=== PATIENT | male | born 1980 | race Caucasian/White ===

== ENCOUNTER 2019-03-22 11:10 | Inpatient (IN) | payer BC, SELFPAY ==
--- NOTE | ~2019-03-22 | US_ITS ---
EXAMINATION: US venous doppler [facility] DATE: 03/22/2019 14:00 INDICATION: Left leg pain and swelling TECHNIQUE: Benitez scale images without and with compression and Doppler images of the left lower extrem ity veins were obtained. COMPARISON: 07/26/2013. FINDINGS: The left common femoral vein, profunda femoral vein, femoral vein, popliteal vein, peroneal trunk, posterior tibial veins, and greater saphenous vein are patent. IMPRESSION: 1. Patent left lower extremity veins. No evidence of deep venous thrombosis. Reviewed, dictated and finalized at location A. [facility]OLOG[facility]
--- NOTE | ~2019-03-22 | XR_ITS ---
EXAMINATION: XR ankle LT min 3V DATE: 03/22/2019 14:30 INDICATION: Left ankle pain and cellulitis TECHNIQUE: Anteroposterior, lateral, mortise, and additional oblique view of the ankle were obtained. COMPARISON: None. FINDINGS: There is soft tissue swelling anterior to the ankle. Bone alignment is normal. There is no fracture. A plantar calcaneal enthesophyte is noted. IMPRESSION: 1. Soft tissue swelling without acute osseous findings. Reviewed, dictated and finalized at location A. A R SPECIALIST
[2019-03-22 11:37] VITALS: BP 102/74; PULSE 101; RESP 20; TEMP 36.8; O2SAT 99
[2019-03-22 11:54] LABS: Basophils Percent Auto 0.3 % (0.2-1.2); Eosinophils Percent Auto 0.3 % (0-4.4); Hematocrit 43.4 % (42.0-52.0); Hemoglobin 14.3 g/dL (14.0-18.0); Immature Granulocyte Absolute 0.06 K/mm3 (0.00-0.031); Immature Granulocyte Percent A 0.5 % (0-0.5); Immature Platelet Fraction Pct 4.3 % (0.9-11.2); Lymphocytes Percent Auto 9.1 % (18.3-44.2); Mean Corpuscular HGB Conc 32.9 g/dl (32-36); Mean Corpuscular Hemoglobin 28.6 pg (26-34); Mean Corpuscular Volume 86.8 fl (80-100); Mean Platelet Volume 10.5 fl (7.4-10.4); Monocytes Absolute Auto 1.1 K/mm3 (0.1-0.6); Monocytes Percent Auto 9.9 % (2.6-8.5); Neutrophils Absolute Auto 8.8 K/mm3 (1.3-6.7); Neutrophils Percent Auto 79.9 % (45.5-73.1); Platelet Count Result 125 k/mm3 (150-375)
[2019-03-22 12:05] LABS: Blood Urea Nitrogen 18 mg/dL (9-20); Calcium 8.9 mg/dL (8.4-10.2); Carbon Dioxide 19 mmol/L (22-30); Chloride 92 mmol/L (98-107); Estimated CRCL calculation 209 ml/min; Estimated Glomerular Filt Rate > 60; Glucose 183 mg/dL (75-110); Potassium 3.9 mmol/L (3.4-5.0); Sodium 130 mmol/L (137-145)
--- NOTE | 2019-03-22 14:19 | ED.EXTPRO ---
HPI - Extremity Problem General Chief complaint: Extremity Problem,Nontraumatic <CHYNA Gonzalez Last Filed: 03/22/19 14:25> Stated complaint: Cellulitis <CHYNA Gonzalez Last Filed: 03/22/19 14:25> Time Seen by Provider: 03/22/19 13:29 <CHYNA Gonzalez Last Filed: 03/22/19 14:25> Source: patient <CHYNA Gonzalez Last Filed: 03/22/19 14:25> Mode of arrival: ambulatory <CHYNA Gonzalez Last Filed: 03/22/19 14:25> Limitations: no limitations <CHYNA Gonzalez Last Filed: 03/22/19 14:25> History of Present Illness HPI Narrative: Patient is a 38-year-old male who presents to emergency department for evaluation of red swollen tender left lower extremity patient notes he has a diabetic wound to the medial aspect of the left ankle which has been present and is managed by wound care at [facility]. Patient notes chills and body aches over the weekend. Patient denies any vomiting diarrhea. Patient is an insulin-dependent diabetic. Patient presents per private vehicle in no distress patient has not taken anything or and has not been seen for this complaint <CHYNA Gonzalez Last Filed: 03/22/19 14:25> Related Data Home medications: Home Medications Medication Instructions Recorded Confirmed Humalog KwikPen Insulin 03/22/19 aspirin 03/22/19 atorvastatin 40 mg PO DAILY 03/22/19 03/22/19 empagliflozin [Jardiance] 25 mg PO DAILY 03/22/19 03/22/19 furosemide 40 mg PO DAILY 03/22/19 03/22/19 insulin detemir U-100 [Levemir 75 unit SUBCUT DAILY 03/22/19 03/22/19 FlexTouch U-100 Insuln] lisinopril 5 mg PO DAILY 03/22/19 03/22/19 metformin 500 mg PO BID 03/22/19 03/22/19 metoprolol succinate 12.5 mg PO DAILY 03/22/19 03/22/19 <CHYNA Gonzalez Last Filed: 03/22/19 14:25> Allergies/Adverse reactions: Allergies Allergy/AdvReac Type Severity Reaction Status Date / Time No Known Allergies Allergy Verified 03/22/19 10:28 <Herbie Singh PA-C - Last Filed: 03/22/19 14:25> Review of Systems Review of Systems: Narrative: CONSTITUTIONAL: Subjective fever fever, and chills EYES: Denies redness, or discharge. ENT: Denies rhinorrhea, congestion, sore throat, or otalgia. CARDIOVASCULAR: Denies chest pain, edema. RESPIRATORY: Denies cough or dyspnea. GASTROINTESTINAL: Denies abdominal pain, nausea, vomiting, or diarrhea. SKIN: Positive for redness and swelling of the left lower extremity MUSCULOSKELETAL: Positive for arthralgia and myalgias. NEUROLOGIC: Denies headache, or weakness. <Herbie Singh PA-C - Last Filed: 03/22/19 14:25> [facility] Past Medical History Medical History: Medical History (Updated 03/22/19 @ 14:25 by Herbie Singh PA-C) Diabetic ulcer of ankle Insulin dependent diabetes mellitus Obesity <Herbie Singh PA-C - Last Filed: 03/22/19 14:25> Social History Social History: Social History (Updated 03/22/19 @ 14:22 by Herbie Singh PA-C) Smoking status: Never smoker <Herbie Singh PA-C - Last Filed: 03/22/19 14:25> Exam Narrative: Exam Narrative: GENERAL: Well-appearing, obese, and in no acute distress. HEAD: Normocephalic, atraumatic. EYES: PERRLA and EOMI. ENT: Nares clear, no rhinorrhea or epistaxis. Mucous membranes moist. Oropharynx without tonsillar hypertrophy exudate or other lesions. CHEST: Clear to auscultation. No respiratory distress. No wheezes rales or rhonchi HEART: Regular rate and rhythm. No murmur heard. Normal peripheral pulses. ABDOMEN: Soft, nontender, nondistended EXTREMITIES: Normal range of motion. No edema. SKIN: Warm, dry, no rash. Patient with red tender swollen area from the level of the foot up to just below the knee that is splotchy and circumferential in some areas warm to touch. Patient with superficial ulcers to the bilateral medial ankles. NEURO: No focal deficits. Alert and oriented x3. Neurovascularly inta
[2019-03-22 15:02] LABS: Lactic Acid Reflex 3.4 mmol/L (0.7-2.1)
[2019-03-22 15:15] VITALS: BP 110/82; PULSE 100; RESP 16; O2SAT 98
[2019-03-22] MEDS: LACTATED RINGERS 1,000 ML 999 ML IV CONT (15:15)
[2019-03-22 15:45] VITALS: BP 107/68; PULSE 116; RESP 18; TEMP 36.8; O2SAT 99
--- NOTE | 2019-03-22 15:46 | ADMGEN ---
This patient, Silviano Lemon, was admitted to [facility] Surg Room [id number]. Patient/family oriented to hospital policies and general routines including ID bracelet, bed and alarms, visiting hours, pain management, procedures, bathroom and other care routines, personal items, smoking policy, room service/diet, and visiting hours. Valuables list has been completed. Information on how to activate the Rapid Response Team has been discussed. Patient/Family are encouraged to report perceived risks to care and to ask questions if they do not understand what they are told or what they should do.
[2019-03-22 15:48] VITALS: BMI 53.8
[2019-03-22 17:23] LABS: Glucose Point of Care 196 (65-105)
[2019-03-22 17:46] LABS: Reflex Lactic Acid Yes or No Add Lactic
[2019-03-22 18:20] LABS: Lactic Acid 1.3 mmol/L (0.7-2.1)
[2019-03-22] MEDS: LACTATED RINGERS 1,000 ML 125 ML IV CONT (18:35)
--- NOTE | 2019-03-22 19:45 | PM.IMHP ---
H&P: HPI History of Present Illness Chief complaint: Left leg pain and redness. 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 Friday while at work he developed sudden chills and feelings of overall malaise. He assumed he had the flu as he then developed diffuse body aches, decreased appetite, loose stools, sweats, and fever to 102?. Yesterday he developed erythema of the left lower leg, and he put some cortisone cream on that without benefit. Around 09:00 this morning, his leg began to hurt any noticed that it was beefy red, swollen, and hot. He has no history of multidrug resistant organisms. He denies trauma to the area. It is noted thathe has chronic lymphedema and venous stasis wounds for which he is seen at the wound clinic at [facility] with [facility]. Review of Systems Review of Systems: Narrative: Twelve systems were reviewed with pertinent positives and negatives as per HPI. Most recent hemoglobin A1c was around 8. His mealtime glucoses are usually around 150. Over the past week his glucose has been up over 200, which is unusual for him. He is due for his annual eye exam, and denies ever having signs of diabetic retinopathy. No nephropathy. No chest pain, pleuritic pain, or shortness of breath. Except as documented, all other systems were reviewed and are negative. 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 Hypertension Insulin dependent diabetes mellitus Lymphedema of lower extremity Obesity Obstructive sleep apnea on CPAP Surgical History Surgical History (Updated 03/22/19 @ 22:35 by Summer Liu PA-C) Status post aortic valve replacement Status post biventricular cardiac pacemaker insertion Status post sclerotherapy of varicose veins Family History Family History Mother Cancer Grandparent Cancer Grandparent Heart attack Social History Social History (Updated 03/22/19 @ 22:36 by Summer Liu PA-C) Social History: The patient lives in [place] with his parents. He designates his father, Buzz, is his surrogate decision maker and he wishes to be a full code. He is a lifelong nonsmoker and denies alcohol and drug abuse. Gender identity (if verbalized by the patient): Male Spiritual care concerns: No Agree to blood products: Yes Meds Home Medications and Allergies Home Medications Medication Instructions Recorded Confirmed Type Humalog KwikPen Insulin See Protocol SUBCUT TIDWM 03/22/19 03/22/19 History aspirin 81 mg PO DAILY 03/22/19 03/22/19 History atorvastatin 40 mg PO DAILY 03/22/19 03/22/19 History empagliflozin [Jardiance] 25 mg PO DAILY 03/22/19 03/22/19 History furosemide 40 mg PO DAILY 03/22/19 03/22/19 History insulin detemir U-100 [Levemir 75 unit SUBCUT DAILY 03/22/19 03/22/19 History FlexTouch U-100 Insuln] lisinopril 5 mg PO DAILY 03/22/19 03/22/19 History metformin 500 mg PO BID 03/22/19 03/22/19 History metoprolol succinate 12.5 mg PO DAILY 03/22/19 03/22/19 History Allergies Allergy/AdvReac Type Severity Reaction Status Date / Time No Known Allergies Allergy Verified 03/22/19 15:16 Vital Signs Vital Signs - 24 hr 03/22/19 11:37 03/22/19 15:15 03/22/19 15:45 Temperature 98.3 F 98.3 F Pulse Rate 101 H 100 116 H Respiratory Rate 20 16 18 Blood Pressure 102/74 110/82 107/68 Pulse Oximetry 99 98 99 03/22/19 22:00 Temperature 98.2 F Pulse Rate 110 H Respira
[2019-03-22] MEDS: FAMOTIDINE 20 MG/2 ML VIAL IV PUSH (21:10)
[2019-03-22 22:00] VITALS: BP 112/71; PULSE 110; RESP 18; TEMP 36.8; O2SAT 98
[2019-03-23 00:20] VITALS: PULSE 107; RESP 18; O2SAT 96
[2019-03-23] MEDS: LACTATED RINGERS 1,000 ML 125 ML IV CONT (02:24)
[2019-03-23 03:15] VITALS: PULSE 101; RESP 18; O2SAT 95
[2019-03-23 06:00] VITALS: BP 106/62; PULSE 112; RESP 20; TEMP 37; O2SAT 99
[2019-03-23 06:05] LABS: Basophils Percent Auto 0.3 % (0.2-1.2); Eosinophils Percent Auto 0.2 % (0-4.4); Hematocrit 40.7 % (42.0-52.0); Hemoglobin 13.4 g/dL (14.0-18.0); Immature Granulocyte Absolute 0.07 K/mm3 (0.00-0.031); Immature Granulocyte Percent A 0.6 % (0-0.5); Lymphocytes Percent Auto 8.2 % (18.3-44.2); Mean Corpuscular HGB Conc 32.9 g/dl (32-36); Mean Corpuscular Hemoglobin 28.4 pg (26-34); Mean Corpuscular Volume 86.2 fl (80-100); Mean Platelet Volume 10.5 fl (7.4-10.4); Monocytes Absolute Auto 1.4 K/mm3 (0.1-0.6); Monocytes Percent Auto 11.5 % (2.6-8.5); Neutrophils Absolute Auto 9.6 K/mm3 (1.3-6.7); Neutrophils Percent Auto 79.2 % (45.5-73.1); Platelet Count Result 122 k/mm3 (150-375); Red Blood Count 4.72 M/mm3 (4.6-6.20); Red Cell Distribution Width 15.1 % (11.5-14.5); White Blood Count 12.2 K/mm3 (4.5-10.0)
[2019-03-23 06:34] LABS: Blood Urea Nitrogen 14 mg/dL (9-20); Calcium 8.5 mg/dL (8.4-10.2); Carbon Dioxide 19 mmol/L (22-30); Chloride 93 mmol/L (98-107); Estimated CRCL calculation 266 ml/min; Estimated Glomerular Filt Rate > 60; Glucose 198 mg/dL (75-110); Potassium 3.7 mmol/L (3.4-5.0); Sodium 130 mmol/L (137-145)
[2019-03-23 09:05] LABS: Glucose Point of Care 190 (65-105)
[2019-03-23] MEDS: INSULIN DETEMIR 100 UNITS/ML 75 UNITS SUB-Q (10:00)
[2019-03-23] MEDS: SILVERGEL (ELTA) 45 ML 1 APPLIC TOPICAL (10:03)
[2019-03-23 11:17] VITALS: PULSE 112
[2019-03-23] MEDS: FUROSEMIDE 40 MG TABLET PO (11:17)
[2019-03-23] MEDS: METOPROLOL SUCCINATE EXT REL 12.5 MG TABCR PO (11:17)
[2019-03-23] MEDS: ATORVASTATIN 40 MG TABLET PO (11:17)
[2019-03-23] MEDS: ASPIRIN 81 MG ENTERIC TABLET PO (11:18)
[2019-03-23] MEDS: ENOXAPARIN 40 MG/0.4 ML SYRINGE SUB-Q (11:18)
[2019-03-23] MEDS: lisinopriL 5 MG TABLET PO (11:18)
[2019-03-23 13:25] LABS: Glucose Point of Care 317 (65-105)
--- NOTE | 2019-03-23 13:39 | PM.IMPN ---
Progress Note: A&P Assessment and Plan (1) Left leg cellulitis: Code(s): L03.116 - Cellulitis of left lower limb Status: Acute Assessment and Plan: Findings consistent with cellulitis. Will continue IV imipenem and vancomycin per antibiotic stewardship. Starting to improve. WBC 12.2 today. Blood cultures negative thus far. Will reassess tomorrow. (2) Chronic wound of extremity: Status: Acute Assessment and Plan: Does not appear to be infected at this time. Appreciate help from wound care nurse. Continue local wound care. (3) Insulin dependent diabetes mellitus: Code(s): E11.9 - Type 2 diabetes mellitus without complications; Z79.4 - patient safety coordinator (current) use of insulin Status: Acute Assessment and Plan: Hemoglobin A1c reported to be around 8. Glucose reviewed on 03/23/2019 with mild elevation but acceptable. Will continue to monitor on Levemir with sliding scale insulin available. Home Jardiance is non formulary and will hold for now. Will continue to monitor and adjust treatment as needed. (4) Hypertension: Qualifiers: Hypertension type: essential hypertension Qualified Code(s): I10 - Essential (primary) hypertension Code(s): I10 - Essential (primary) hypertension Status: Acute Assessment and Plan: Blood pressure reviewed on 03/23/2019 and low normal but stable. Will continue to monitor on home lisinopril, metoprolol and Lasix. (5) CHF (congestive heart failure): Qualifiers: Heart failure type: unspecified Heart failure chronicity: chronic Qualified Code(s): I50.9 - Heart failure, unspecified Code(s): I50.9 - Heart failure, unspecified Status: Acute Assessment and Plan: History of CHF per patient. Will discontinue IV fluids as not needed. Continue home lisinopril, metoprolol and furosemide. Will monitor. (6) Obstructive sleep apnea on CPAP: Code(s): G47.33 - Obstructive sleep apnea (adult) (pediatric); Z99.89 - Dependence on other enabling machines and devices Status: Acute Assessment and Plan: Stable. Continue CPAP at night and with naps. (7) DVT prophylaxis: Code(s): Z29.9 - Encounter for prophylactic measures, unspecified Status: Acute Assessment and Plan: Lovenox. Time Spent With Patient Time with patient: 15 - 25 minutes Subjective Date/time seen: 03/23/19 13:39 Interval history: Date of Service: 03/23/2019. Admitted with cellulitis left extremity. Does still have redness and pain in left leg but slightly improved. Was able to walk today. No chest pain. No shortness of breath. No abdominal pain. No nausea or vomiting. Review of Systems Constitutional: Constitutional: Denies chills and Denies fever(s) ENT: Denies nasal congestion and Denies nasal discharge Cardiovascular: Cardiovascular: Denies chest pain Respiratory: Respiratory: Denies cough and Denies dyspnea Gastrointestinal: Gastrointestinal: Denies abdominal pain, Denies nausea and Denies vomiting Genitourinary: Genitourinary: Reports no additional male genitourinary complaints Musculoskeletal: Comments: Pain left lower leg. Integumentary/Breasts: Skin/Breast: Reports erythema (Left lower extremity.) Neurologic: Denies headache(s) Psychiatric: Psychiatric: Denies anxiety, Denies confusion and Denies depression Exam Narrative: Exam Narrative: Awake and alert. Const: General: no acute distress HENMT: Mouth: Yes moist mucous membranes Neck: Neck: supple Lymphatic: lymphadenopathy not noted Resp: Auscultation: clear to auscultation bilaterally, no rales and no wheezes Cardio: Rate: regular rate Rhythm: regular rhythm GI: Inspection: non-distended GI Palp: Yes Soft to palpation and No Tenderness to palpation present (GI) Auscultation: normal bowel sounds Skin: General skin exam: erythema (Left lower extremity starting just below the knee) Other: Mepilex
[2019-03-23] MEDS: INSULIN ASPART (*BKC) 100 UNITS/ML SUB-Q ×2 (13:45→19:43)
[2019-03-23 15:33] VITALS: BP 91/66; PULSE 108; RESP 16; TEMP 36.9; O2SAT 98
[2019-03-23 17:23] LABS: Glucose Point of Care 207 (65-105)
[2019-03-23 20:52] LABS: Glucose Point of Care 244 (65-105)
[2019-03-23 22:00] VITALS: BP 105/80; PULSE 112; RESP 18; TEMP 37.2; O2SAT 98
[2019-03-24] VITALS (7 sets, daily range): BP systolic 100–105; BP diastolic 47–70; PULSE 94–109; RESP 18–21; TEMP 36.8–37.3; O2SAT 96–99
[2019-03-24 03:16] LABS: Vancomycin Trough 7.6 ug/mL (10.0-20.0)
[2019-03-24 06:25] LABS: Blood Urea Nitrogen 14 mg/dL (9-20); Calcium 8.5 mg/dL (8.4-10.2); Carbon Dioxide 26 mmol/L (22-30); Chloride 94 mmol/L (98-107); Estimated CRCL calculation 313 ml/min; Estimated Glomerular Filt Rate > 60; Glucose 204 mg/dL (75-110); Potassium 3.1 mmol/L (3.4-5.0); Sodium 130 mmol/L (137-145)
[2019-03-24 06:29] LABS: Hematocrit 39.2 % (42.0-52.0); Mean Corpuscular HGB Conc 33.2 g/dl (32-36); Mean Corpuscular Hemoglobin 28.8 pg (26-34); Mean Corpuscular Volume 86.7 fl (80-100); Mean Platelet Volume 10.4 fl (7.4-10.4); Platelet Count Result 123 k/mm3 (150-375); Red Blood Count 4.52 M/mm3 (4.6-6.20); Red Cell Distribution Width 15.1 % (11.5-14.5); White Blood Count 11.2 K/mm3 (4.5-10.0)
[2019-03-24 08:06] LABS: Glucose Point of Care 240 (65-105)
[2019-03-24] MEDS: INSULIN DETEMIR 100 UNITS/ML 75 UNITS SUB-Q (08:15)
[2019-03-24] MEDS: INSULIN ASPART (*BKC) 100 UNITS/ML SUB-Q ×3 (08:15→18:56)
[2019-03-24] MEDS: SILVERGEL (ELTA) 45 ML 1 APPLIC TOPICAL (09:39)
[2019-03-24] MEDS: POTASSIUM CHLORIDE 20 MEQ TABLET 40 MEQ PO (09:40)
[2019-03-24] MEDS: ASPIRIN 81 MG ENTERIC TABLET PO (09:40)
[2019-03-24] MEDS: ATORVASTATIN 40 MG TABLET PO (09:40)
[2019-03-24] MEDS: FUROSEMIDE 40 MG TABLET PO (09:40)
[2019-03-24] MEDS: ENOXAPARIN 40 MG/0.4 ML SYRINGE SUB-Q (09:40)
[2019-03-24] MEDS: lisinopriL 5 MG TABLET PO (09:40)
[2019-03-24] MEDS: METOPROLOL SUCCINATE EXT REL 12.5 MG TABCR PO (09:40)
[2019-03-24 12:09] LABS: Glucose Point of Care 221 (65-105)
--- NOTE | 2019-03-24 15:06 | PM.IMPN ---
Progress Note: A&P Assessment and Plan (1) Left leg cellulitis: Code(s): L03.116 - Cellulitis of left lower limb Status: Acute Assessment and Plan: Findings consistent with cellulitis. Improving with less erythema and no warmth today. Will continue IV imipenem and vancomycin per antibiotic stewardship. Starting to improve. WBC to 11.2 today. Blood cultures remain negative. Continue elevation when possible. Also encouraged ambulation. Hopefully home in next 1-2 days. Anticipate transition to oral antibiotic at discharge. (2) Chronic wound of extremity: Status: Acute Assessment and Plan: Does not appear to be infected at this time. Appreciate help from wound care nurse. Continue local wound care. (3) Hypokalemia: Code(s): E87.6 - Hypokalemia Status: Acute Assessment and Plan: Potassium 3.1 today with oral replacement given a. Will continue to monitor and replace as needed. (4) Insulin dependent diabetes mellitus: Code(s): E11.9 - Type 2 diabetes mellitus without complications; Z79.4 - care home (current) use of insulin Status: Acute Assessment and Plan: Hemoglobin A1c reported to be around 8. Glucose reviewed on 03/24/2019. Slightly elevated but acceptable. Will continue to monitor on Levemir with sliding scale insulin available. Home Jardiance is non formulary and will hold for now. Will continue to monitor and adjust treatment as needed. (5) Hypertension: Qualifiers: Hypertension type: essential hypertension Qualified Code(s): I10 - Essential (primary) hypertension Code(s): I10 - Essential (primary) hypertension Status: Acute Assessment and Plan: Blood pressure reviewed on 03/24/2019. Remains low normal but stable. Will continue to monitor on home lisinopril, metoprolol and Lasix. (6) CHF (congestive heart failure): Qualifiers: Heart failure chronicity: chronic Heart failure type: unspecified Qualified Code(s): I50.9 - Heart failure, unspecified Code(s): I50.9 - Heart failure, unspecified Status: Acute Assessment and Plan: History of CHF per patient. IV fluids stopped yesterday. Does not appear to have exacerbation but with slight increase in edema of the left lower extremity, will give dose of IV Lasix this afternoon. Otherwise, will continue home lisinopril, metoprolol and furosemide. Will continue to monitor. (7) Obstructive sleep apnea on CPAP: Code(s): G47.33 - Obstructive sleep apnea (adult) (pediatric); Z99.89 - Dependence on other enabling machines and devices Status: Acute Assessment and Plan: Stable. Continue CPAP at night and with naps. (8) DVT prophylaxis: Code(s): Z29.9 - Encounter for prophylactic measures, unspecified Status: Acute Assessment and Plan: Lovenox. Time Spent With Patient Time with patient: 15 - 25 minutes Subjective Date/time seen: 03/24/19 15:06 Interval history: Date of Service: 03/24/2019. Admitted with cellulitis left extremity. Feels he is making some improvements. Has noticed more swelling in the left foot. Does still have some redness to the left lower leg but no warmth. Does feel left foot may be read. Has been noticing some shortness of breath if tries to lay flat. No chest pain. No abdominal pain. Has been able to walk. Review of Systems Constitutional: Constitutional: Denies chills and Denies fever(s) ENT: Denies nasal congestion and Denies nasal discharge Cardiovascular: Cardiovascular: Denies chest pain Respiratory: Respiratory: Denies cough and Reports dyspnea (When tries to lie flat) Gastrointestinal: Gastrointestinal: Denies abdominal pain, Denies nausea and Denies vomiting Genitourinary: Genitourinary: Reports no additional male genitourinary complaints Musculoskeletal: Comments: Decreased pain left leg Integumentary/Breasts: Skin/Breast: Reports erythema (Left
[2019-03-24] MEDS: FUROSEMIDE INJ 40 MG/4 ML VIAL 20 MG IV PUSH (15:29)
[2019-03-24 18:19] LABS: Glucose Point of Care 265 (65-105)
[2019-03-25 00:50] VITALS: PULSE 88; RESP 18; O2SAT 90
[2019-03-25 04:10] LABS: Hematocrit 40.3 % (42.0-52.0); Mean Corpuscular HGB Conc 32.3 g/dl (32-36); Mean Corpuscular Hemoglobin 28.4 pg (26-34); Mean Corpuscular Volume 88.2 fl (80-100); Mean Platelet Volume 9.9 fl (7.4-10.4); Platelet Count Result 146 k/mm3 (150-375); Red Blood Count 4.57 M/mm3 (4.6-6.20); White Blood Count 10.1 K/mm3 (4.5-10.0)
[2019-03-25 04:28] LABS: Blood Urea Nitrogen 14 mg/dL (9-20); Calcium 8.6 mg/dL (8.4-10.2); Carbon Dioxide 31 mmol/L (22-30); Chloride 95 mmol/L (98-107); Estimated CRCL calculation 231 ml/min; Estimated Glomerular Filt Rate > 60; Glucose 142 mg/dL (75-110); Magnesium 2.1 mg/dL (1.6-2.3); Potassium 3.5 mmol/L (3.4-5.0); Sodium 134 mmol/L (137-145)
[2019-03-25 04:49] LABS: Vancomycin Trough 11.4 ug/mL (10.0-20.0)
[2019-03-25 06:00] VITALS: BP 110/56; PULSE 82; RESP 16; TEMP 36.8; O2SAT 98
[2019-03-25] MEDS: ASPIRIN 81 MG ENTERIC TABLET PO (08:07)
[2019-03-25] MEDS: lisinopriL 5 MG TABLET PO (08:07)
[2019-03-25] MEDS: ATORVASTATIN 40 MG TABLET PO (08:07)
[2019-03-25 08:08] VITALS: PULSE 88
[2019-03-25] MEDS: FUROSEMIDE 40 MG TABLET PO (08:08)
[2019-03-25] MEDS: METOPROLOL SUCCINATE EXT REL 12.5 MG TABCR PO (08:08)
[2019-03-25] MEDS: ENOXAPARIN 40 MG/0.4 ML SYRINGE SUB-Q (08:09)
[2019-03-25] MEDS: INSULIN DETEMIR 100 UNITS/ML 75 UNITS SUB-Q (08:13)
[2019-03-25] MEDS: SILVERGEL (ELTA) 45 ML 1 APPLIC TOPICAL (08:21)
--- NOTE | 2019-03-25 08:49 | PHAR ---
Drug Name: Jardiance Ingredients: Empagliflozin -- 25 MG Related Documents: DRUGDEX Evaluations - EMPAGLIFLOZIN Color: Light Yellow Shape: Oval Imprint: S 25 Form: Oral Tablet RX [id number]
[2019-03-25 09:44] LABS: Glucose Point of Care 153 (65-105)
--- NOTE | 2019-03-25 10:40 | PM.IMPN ---
Progress Note: A&P Assessment and Plan (1) Left leg cellulitis: Code(s): L03.116 - Cellulitis of left lower limb Status: Acute Assessment and Plan: Findings consistent with cellulitis. Continues to improve although some small pustules noted today. Does not appear to have abscess. WBC has decreased to 10.1. Would like to continue IV imipenem and vancomycin at least another 24 hours. Anticipate transition to oral antibiotics at discharge. Blood cultures remain negative. Continue elevation. Continue ambulation as tolerated. Hopefully home soon. (2) Chronic wound of extremity: Status: Acute Assessment and Plan: Does not appear to be infected at this time. Appreciate help from wound care nurse. Continue local wound care. (3) Hypokalemia: Code(s): E87.6 - Hypokalemia Status: Acute Assessment and Plan: Potassium 3.5 today. Will continue to monitor and replace as needed. (4) Insulin dependent diabetes mellitus: Code(s): E11.9 - Type 2 diabetes mellitus without complications; Z79.4 - [facility]PC (current) use of insulin Status: Acute Assessment and Plan: Hemoglobin A1c reported to be around 8. Glucose reviewed on 03/25/2019. Has still had elevation but unable to give home Jardiance. Glucose is better this morning with improving infection. Will continue Levemir. Continue sliding scale insulin. Will continue to monitor and adjust treatment as needed. (5) Hypertension: Qualifiers: Hypertension type: essential hypertension Qualified Code(s): I10 - Essential (primary) hypertension Code(s): I10 - Essential (primary) hypertension Status: Acute Assessment and Plan: Blood pressure reviewed on 03/25/2019. Remains stable. Will continue to monitor on home lisinopril, metoprolol and Lasix. (6) CHF (congestive heart failure): Qualifiers: Heart failure type: unspecified Heart failure chronicity: chronic Qualified Code(s): I50.9 - Heart failure, unspecified Code(s): I50.9 - Heart failure, unspecified Status: Acute Assessment and Plan: History of CHF per patient. Has been off IV fluids since 03/23/2019. Does not appear to have exacerbation. Giving additional dose of IV Lasix today with edema in the left lower extremity. Remains on lisinopril and metoprolol as well as home oral furosemide. Will continue monitor. (7) Obstructive sleep apnea on CPAP: Code(s): G47.33 - Obstructive sleep apnea (adult) (pediatric); Z99.89 - Dependence on other enabling machines and devices Status: Acute Assessment and Plan: Stable. Continue CPAP at night and with naps. (8) DVT prophylaxis: Code(s): Z29.9 - Encounter for prophylactic measures, unspecified Status: Acute Assessment and Plan: Lovenox. Time Spent With Patient Time with patient: 15 - 25 minutes Subjective Date/time seen: 03/25/19 10:40 Interval history: Date of Service: 03/25/2019. Admitted with cellulitis left extremity. Feeling better today. Reports less swelling in the left lower extremity. Does still have some areas of pain in the left lower extremity. Able to walk better. Reports no shortness of breath when trying to lay flat. No chest pain. No abdominal pain. No nausea or vomiting. Review of Systems Constitutional: Constitutional: Denies chills and Denies fever(s) ENT: Denies nasal congestion and Denies nasal discharge Cardiovascular: Cardiovascular: Denies chest pain Respiratory: Respiratory: Denies cough and Denies dyspnea Gastrointestinal: Gastrointestinal: Denies abdominal pain, Denies nausea and Denies vomiting Genitourinary: Genitourinary: Reports no additional male genitourinary complaints Musculoskeletal: Comments: Decreased pain left lower extremity Integumentary/Breasts: Skin/Breast: Reports erythema (Left lower extremity.) Neurologic: Denies confusion and Denies headache(s
[2019-03-25] MEDS: FUROSEMIDE INJ 40 MG/4 ML VIAL 20 MG IV PUSH (12:04)
[2019-03-25 12:58] LABS: Glucose Point of Care 178 (65-105)
[2019-03-25 14:00] VITALS: BP 115/66; PULSE 99; RESP 16; TEMP 36.9; O2SAT 100
[2019-03-25 17:56] LABS: Glucose Point of Care 170 (65-105)
[2019-03-25 21:32] LABS: Glucose Point of Care 161 (65-105)
[2019-03-25 22:00] VITALS: BP 116/60; PULSE 99; RESP 20; TEMP 36.8; O2SAT 98
[2019-03-26 06:00] VITALS: BP 114/69; PULSE 86; RESP 20; TEMP 36.6; O2SAT 98
[2019-03-26 06:07] LABS: Hematocrit 38.5 % (42.0-52.0); Hemoglobin 12.4 g/dL (14.0-18.0); Mean Corpuscular HGB Conc 32.2 g/dl (32-36); Mean Corpuscular Hemoglobin 28.1 pg (26-34); Mean Corpuscular Volume 87.3 fl (80-100); Mean Platelet Volume 9.9 fl (7.4-10.4); Platelet Count Result 170 k/mm3 (150-375); Red Blood Count 4.41 M/mm3 (4.6-6.20); Red Cell Distribution Width 14.8 % (11.5-14.5); White Blood Count 9.4 K/mm3 (4.5-10.0)
[2019-03-26 06:35] LABS: Blood Urea Nitrogen 11 mg/dL (9-20); Calcium 8.6 mg/dL (8.4-10.2); Carbon Dioxide 30 mmol/L (22-30); Chloride 93 mmol/L (98-107); Estimated CRCL calculation 266 ml/min; Estimated Glomerular Filt Rate > 60; Glucose 133 mg/dL (75-110); Magnesium 2.1 mg/dL (1.6-2.3); Potassium 3.2 mmol/L (3.4-5.0); Sodium 134 mmol/L (137-145)
[2019-03-26] MEDS: INSULIN DETEMIR 100 UNITS/ML 75 UNITS SUB-Q (07:59)
[2019-03-26] MEDS: POTASSIUM CHLORIDE 20 MEQ TABLET 40 MEQ PO (08:01)
[2019-03-26] MEDS: ENOXAPARIN 40 MG/0.4 ML SYRINGE SUB-Q (08:03)
[2019-03-26 08:04] VITALS: PULSE 88
[2019-03-26] MEDS: ASPIRIN 81 MG ENTERIC TABLET PO (08:04)
[2019-03-26] MEDS: FUROSEMIDE 40 MG TABLET PO (08:04)
[2019-03-26] MEDS: METOPROLOL SUCCINATE EXT REL 12.5 MG TABCR PO (08:04)
[2019-03-26] MEDS: lisinopriL 5 MG TABLET PO (08:05)
[2019-03-26] MEDS: ATORVASTATIN 40 MG TABLET PO (08:05)
[2019-03-26] MEDS: SILVERGEL (ELTA) 45 ML 1 APPLIC TOPICAL (08:08)
[2019-03-26 09:16] LABS: Glucose Point of Care 138 (65-105)
[2019-03-26 13:16] LABS: Glucose Point of Care 140 (65-105)
[2019-03-26 14:00] VITALS: BP 119/80; PULSE 102; RESP 18; TEMP 36.8; O2SAT 98
--- NOTE | 2019-03-26 14:51 | PM.IMPN ---
Progress Note: A&P Assessment and Plan (1) Left leg cellulitis: Code(s): L03.116 - Cellulitis of left lower limb Status: Acute Assessment and Plan: Findings consistent with cellulitis. Significant improvement noted today. Pustules or drying. WBC is normal at 9.4. Has been on IV imipenem and vancomycin. Discussed with patient will attempt discharge home on oral clindamycin. He will not return to work until he is released by his regular physician. He does have a regular wound care physician, Dr. Payton with whom he has an appointment next week. Will discharge today. (2) Chronic wound of extremity: Status: Acute Assessment and Plan: Does not appear to be infected at this time. Appreciate help from wound care nurse. Continue local wound care. Follow-up with regular wound care physician as outpatient. (3) Hypokalemia: Code(s): E87.6 - Hypokalemia Status: Acute Assessment and Plan: Potassium 3.2 today with oral replacement given. Patient's potassium was normal on at admission. Will not send home on scheduled potassium. Will need to repeat as outpatient. (4) Insulin dependent diabetes mellitus: Code(s): E11.9 - Type 2 diabetes mellitus without complications; Z79.4 - watermaster (current) use of insulin Status: Acute Assessment and Plan: Hemoglobin A1c reported to be around 8. Glucose reviewed on 03/26/2019 and improved today. Resume home Jardiance at discharge. Continue home Levemir. Continue to follow as an outpatient. (5) Hypertension: Qualifiers: Hypertension type: essential hypertension Qualified Code(s): I10 - Essential (primary) hypertension Code(s): I10 - Essential (primary) hypertension Status: Acute Assessment and Plan: Blood pressure reviewed on 03/26/2019 and stable. Will continue home lisinopril, metoprolol and Lasix. (6) CHF (congestive heart failure): Qualifiers: Heart failure type: unspecified Heart failure chronicity: chronic Qualified Code(s): I50.9 - Heart failure, unspecified Code(s): I50.9 - Heart failure, unspecified Status: Acute Assessment and Plan: History of CHF per patient. Has been off IV fluids since 03/23/2019. No exacerbation. Continue home oral Lasix, lisinopril and metoprolol. (7) Obstructive sleep apnea on CPAP: Code(s): G47.33 - Obstructive sleep apnea (adult) (pediatric); Z99.89 - Dependence on other enabling machines and devices Status: Acute Assessment and Plan: Stable. Continue CPAP at night and with naps. (8) DVT prophylaxis: Code(s): Z29.9 - Encounter for prophylactic measures, unspecified Status: Acute Assessment and Plan: Lovenox. Time Spent With Patient Time with patient: 15 - 25 minutes Subjective Date/time seen: 03/26/19 14:51 Interval history: Date of Service: 03/26/2019. Admitted with cellulitis left extremity. Patient is definitely feeling better today. Decrease redness in the left leg. Still has swelling. Decreased pain. No chest pain. No difficulty with shortness of breath. No headache. Wants to go home. Review of Systems Review of Systems: Narrative: Feeling better. Wants to go home. Constitutional: Constitutional: Denies chills and Denies fever(s) ENT: Denies nasal congestion and Denies nasal discharge Cardiovascular: Cardiovascular: Denies chest pain Respiratory: Respiratory: Denies cough and Denies dyspnea Gastrointestinal: Gastrointestinal: Denies abdominal pain, Denies nausea and Denies vomiting Genitourinary: Genitourinary: Reports no additional male genitourinary complaints Musculoskeletal: Comments: Decreased pain left leg Integumentary/Breasts: Skin/Breast: Reports erythema (Left lower extremity.) Neurologic: Denies confusion and Denies headache(s) Psychiatric: Psychiatric: Denies anxiety, Denies confusion and Denies depression Exam Narrative:
--- NOTE | 2019-03-26 20:47 | PM.DS ---
DS: Diagnosis Admitting Diagnosis Admitting Diagnosis: Cellulitis of left lower limb Discharge Diagnosis (1) Left leg cellulitis: Code(s): L03.116 - Cellulitis of left lower limb Status: Acute (2) Chronic wound of extremity: Status: Acute (3) Hypokalemia: Code(s): E87.6 - Hypokalemia Status: Acute (4) Insulin dependent diabetes mellitus: Code(s): E11.9 - Type 2 diabetes mellitus without complications; Z79.4 - buttermilk drier operator (current) use of insulin Status: Acute (5) Hypertension: Qualifiers: Hypertension type: essential hypertension Qualified Code(s): I10 - Essential (primary) hypertension Code(s): I10 - Essential (primary) hypertension Status: Acute (6) CHF (congestive heart failure): Qualifiers: Heart failure chronicity: chronic Heart failure type: unspecified Qualified Code(s): I50.9 - Heart failure, unspecified Code(s): I50.9 - Heart failure, unspecified Status: Acute (7) Obstructive sleep apnea on CPAP: Code(s): G47.33 - Obstructive sleep apnea (adult) (pediatric); Z99.89 - Dependence on other enabling machines and devices Status: Acute DS: Summary Hospital Course Reason for hospitalization: Left leg pain and redness. Hospital Course: Date of Service of Discharge: March 26, 2019. 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 Patient reports noting sudden chills and feeling of overall malaise while at work on Friday. Patient assumed E had the flu as he had developed diffuse body aches, decreased appetite, loose stools, sweats and fever up to 102. On the day before presentation he developed erythema of the left lower leg. He did put cortisone cream on the leg without improvement. At approximately 9:00 a.m. on the morning of presentation, his leg began to hurt and he noticed that it was beefy red, swollen and hot. No chest pain or shortness of breath. No trauma to the area. He is seen regularly at the wound clinic affiliated with [facility]. On evaluation the emergency room, symptoms were consistent with cellulitis. As result, he was admitted for further evaluation and treatment. Course in Hospital: He was admitted to the medical floor where he remained for the duration of his stay. Based on antibiotic stewardship, he was started on IV imipenem and vancomycin. WBC was elevated on admission. Over the next several days patient had steady improvement of the left lower leg with decrease in erythema and warmth. Some superficial pustules did become noticeable on the day prior to discharge but were already drying by the date of discharge. WBC did normalize by the time of discharge. Venous Dopplers were done showing no DVT. Initially, patient did have difficulty bearing weight on the left lower extremity but this rapidly improved with patient ambulating on his own. He was noted to have some increase in edema of the left lower leg for which he did receive 2 doses of IV Lasix during his stay. By 03/26/2019, the cellulitis of the left lower extremity was felt to have improved significantly enough that he could be discharged home on oral antibiotics after having received 5 days of IV antibiotics. During his stay, patient did have intermittent hypokalemia attributed to additional IV Lasix on top of his home oral Lasix. Potassium was replaced orally. He had no exacerbation of his CHF. In addition to Lasix, he was also continued on home lisinopril and metoprolol. Blood pressure remained stable. Initial IV fluids were discontinued within the 1st 24 hours as not felt necessary. Glucose was monitored throughout his stay in did have elevation
== END 2019-03-26 17:45 | disposition home or self-care (01) | DRG 603 ==
LOC: ANHED 14:36 → ANH3MEDSUR 15:14
PROVIDERS: Emergency Medicine; Emergency Medicine Emergency Medical Services; Admitting Provider Internal Medicine; Emergency Provider Emergency Medicine; Visit Provider Hospitalist
DX: L03.116 Cellulitis of left lower limb (principal); Z68.43 Body mass index [BMI] 50.0-59.9, adult; E11.9 Type 2 diabetes mellitus without complications; Z79.4 Long term (current) use of insulin; I89.0 Lymphedema, not elsewhere classified; Z95.3 Presence of xenogenic heart valve; I87.2 Venous insufficiency (chronic) (peripheral); E66.9 Obesity, unspecified; G47.33 Obstructive sleep apnea (adult) (pediatric); I50.9 Heart failure, unspecified; I11.0 Hypertensive heart disease with heart failure; E87.6 Hypokalemia
CPT/HCPCS: 36415; 73610; 80048; 80202; 83605; 83735; 85025; 85027; 85055; 87040; 93971; 94660; 96361; 96365; 96366; 96367; 96368; 96372; 96375; 96376; 99285; A9270; G0378; J0131; J0743; J1650; J1815; J1940; J3370; J7120

== ENCOUNTER 2021-11-01 12:08 | Emergency (ER) | payer BC, SELFPAY ==
--- NOTE | ~2021-11-01 | US_ITS ---
EXAMINATION: US venous doppler [facility] DATE: 11/01/2021 14:14 INDICATION: Left lower limb pain TECHNIQUE: Grayscale ultrasound images without and with compression and Doppler ultrasound images of the left lower extremity veins were obtained. COMPARISON: 03/22/2019 FINDINGS: The visualized portions of left common femoral vein, profunda (deep) femoral vein, femoral vein, popl iteal vein, peroneal veins, posterior tibial veins, gastrocnemius vein and greater saphenous vein out flow are patent. IMPRESSION: 1. No deep venous thrombosis in the left lower limb. Reviewed, dictated and finalized at location A.
--- NOTE | ~2021-11-01 | XR_ITS ---
EXAMINATION: XR lumbar spine 2-3V DATE: 11/01/2021 13:47 INDICATION: Low back pain radiating to left leg. TECHNIQUE: 3 views of lumbar spine were obtained. COMPARISON: None. FINDINGS: There is 10 degrees dextroscoliosis of lumbar spine. There is mild chronic anterior wedging of L1 vertebral body. Intervertebral disc heights are normal. There are endplate osteophytes at most levels. There is multilevel mild to moderate facet joint osteoarthrosis. Wires overlie right abdomen . IMPRESSION: 1. Mild lumbar spondylosis. 2. Lumbar dextroscoliosis. Reviewed, dictated and finalized at location A.
[2021-11-01 12:09] VITALS: BP 115/77; PULSE 83; RESP 18; TEMP 36.7; O2SAT 100
[2021-11-01 13:43] LABS: Basophils Percent Auto 0.5 % (0.2-1.2); Eosinophils Absolute Auto 0.2 K/mm3 (0-0.3); Eosinophils Percent Auto 2.9 % (0-4.4); Hematocrit 48.2 % (42.0-52.0); Hemoglobin 15.8 g/dL (14.0-18.0); Immature Granulocyte Absolute 0.02 K/mm3 (0.00-0.031); Immature Granulocyte Percent A 0.3 % (0-0.5); Lymphocytes Absolute Auto 1.79 K/mm3 (0.9-3.2); Mean Corpuscular HGB Conc 32.8 g/dl (32-36); Mean Corpuscular Hemoglobin 29.4 pg (26-34); Mean Corpuscular Volume 89.8 fl (80-100); Mean Platelet Volume 9.6 fl (7.4-10.4); Monocytes Absolute Auto 0.5 K/mm3 (0.1-0.6); Monocytes Percent Auto 7.1 % (2.6-8.5); Neutrophils Absolute Auto 4.9 K/mm3 (1.3-6.7); Neutrophils Percent Auto 65.2 % (45.5-73.1); Platelet Count Result 187 k/mm3 (150-375); Red Blood Count 5.37 M/mm3 (4.6-6.20); Red Cell Distribution Width 14.6 % (11.5-14.5); White Blood Count 7.5 K/mm3 (4.5-10.0)
--- NOTE | 2021-11-01 13:44 | ED.LOWEXIN ---
HPI - Extremity Injury (Lower) General Chief Complaint: Extremity Injury, Lower Stated Complaint: leg pain Time Seen by Provider: 11/01/21 12:55 History of Present Illness HPI Narrative: 41-year-old male history of CHF and varicose veins presents emergency room complaints of left calf pain. Patient states the pain started in his lower back and has since radiated into his left leg. States pain is worse when he ambulates. Denies any known injury or trauma. No known history of DVTs Related Data Home Medications Medication Instructions Recorded Confirmed Humalog KwikPen Insulin See Protocol subcut TIDWM 03/22/19 03/22/19 aspirin 81 mg tablet,delayed 81 mg PO DAILY 03/22/19 03/22/19 release atorvastatin 40 mg tablet 40 mg PO DAILY 03/22/19 03/22/19 empagliflozin 25 mg tablet 25 mg PO DAILY 03/22/19 03/22/19 (Jardiance) furosemide 40 mg tablet 40 mg PO DAILY 03/22/19 03/22/19 insulin detemir U-100 100 unit/mL 75 unit subcut DAILY 03/22/19 03/22/19 (3 mL) subcutaneous pen (Levemir FlexTouch U-100 Insulin) metformin 500 mg tablet 500 mg PO BID 03/22/19 03/22/19 metoprolol succinate 50 mg 12.5 mg PO DAILY 03/22/19 03/22/19 tablet,extended release 24 hr dulaglutide 3 mg/0.5 mL mg subcut 11/01/21 subcutaneous pen injector (Trulicity) sacubitril 24 mg-valsartan 26 mg tablet 11/01/21 tablet (Entresto) Allergies Allergy/AdvReac Type Severity Reaction Status Date / Time Penicillins Allergy Swelling Verified 11/01/21 12:35 Review of Systems Review of Systems: CONSTITUTIONAL: Denies fever, chills, or sweats. EYES: Denies visual changes, redness, or discharge. ENT: Denies rhinorrhea, congestion, sore throat, or otalgia. CARDIOVASCULAR: Denies chest pain, palpitations, or edema. RESPIRATORY: Denies cough or dyspnea. GASTROINTESTINAL: Denies abdominal pain, nausea, vomiting, or diarrhea. GENITOURINARY: Denies dysuria or hematuria. SKIN: Denies rash or itching. MUSCULOSKELETAL: Reports left leg pain NEUROLOGIC: Denies headache, numbness, dizziness, or weakness. PSYCHIATRIC: Denies anxiety or depression. 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 Hypertension Insulin dependent diabetes mellitus Lymphedema of lower extremity Obesity Obstructive sleep apnea on CPAP Surgical History Surgical History Status post aortic valve replacement Status post biventricular cardiac pacemaker insertion Status post sclerotherapy of varicose veins Family History Family History Mother Cancer Grandparent Cancer Grandparent Heart attack Social History Social History Social History: The patient lives in [place] with his parents. He designates his father, Buzz, is his surrogate decision maker and he wishes to be a full code. He is a lifelong nonsmoker and denies alcohol and drug abuse. Gender identity (if verbalized by the patient): Male Spiritual care concerns: No Agree to blood products: Yes Exam Narrative: GENERAL: Well-appearing, well-nourished, no physical limitations, and in no acute distress. HEAD: Normocephalic, atraumatic. EYES: Conjunctivae normal, PERRLA and EOMI. CHEST: Clear to auscultation. No respiratory distress. No wheezes rales or rhonchi. No tenderness. HEART: Regular rate and rhythm. No murmur heard. Normal peripheral pulses. BACK: Midline lumbar tenderness, no step offs, no bony abnormality; FROM EXTREMITIES: Normal range of motion. Varicose veins noted. Dark reddish color lower extremities. Alopecia. Positive Homans' sign LLE; +SLE LLE SKIN: Warm, dry, no rash. No noted wounds NEURO: No focal deficits. Alert and orie
[2021-11-01 13:53] LABS: Alanine Aminotransferase 27 U/L (6-50); Albumin Level 4.6 g/dL (3.5-5.1); Alkaline Phosphatase 66 U/L (38-126); Anion Gap 13 mmol/L (8-16); Aspartate Amino Transferase 24 U/L (17-59); Bilirubin,Total 1.6 mg/dL (0.2-1.3); Blood Urea Nitrogen 17 mg/dL (9-20); Calcium 8.9 mg/dL (8.4-10.2); Carbon Dioxide 23 mmol/L (22-30); Chloride 104 mmol/L (98-107); Estimated CRCL calculation 257 ml/min; Estimated Glomerular Filt Rate > 60; Glucose 125 mg/dL (65-110); Potassium 4.5 mmol/L (3.4-5.0); Sodium 140 mmol/L (137-145)
[2021-11-01 14:04] LABS: NT Pro B Type Natriuretic Pept 253 pg/mL (5-100)
== END 2021-11-01 14:59 | disposition home or self-care (01) ==
PROVIDERS: Emergency Provider Nurse Practitioner Family; PCP Internal Medicine
DX: M54.42 Lumbago with sciatica, left side (principal); M79.662 Pain in left lower leg; I11.0 Hypertensive heart disease with heart failure; I50.9 Heart failure, unspecified; I87.2 Venous insufficiency (chronic) (peripheral); Z95.0 Presence of cardiac pacemaker; G47.33 Obstructive sleep apnea (adult) (pediatric); E66.01 Morbid (severe) obesity due to excess calories; Z68.43 Body mass index [BMI] 50.0-59.9, adult; Z79.4 Long term (current) use of insulin; Z79.82 Long term (current) use of aspirin; Z79.84 Long term (current) use of oral hypoglycemic drugs; Z79.899 Other long term (current) drug therapy
CPT/HCPCS: 36415; 72100; 80053; 83880; 85025; 93971; 99284

== ENCOUNTER 2023-09-29 11:09 | Emergency (ER) | payer BC, SELFPAY ==
[2023-09-29 11:17] VITALS: BP 104/58; PULSE 97; RESP 20; TEMP 37.2; O2SAT 98
--- NOTE | 2023-09-29 13:13 | ED.GENADULT ---
HPI - General Adult General Chief complaint: Skin/Abscess/Foreign Body Stated complaint: cellulitis Time Seen by Provider: 09/29/23 12:46 History of Present Illness HPI narrative: 43-year-old male presenting to the emergency department for evaluation for worsening chronic cellulitis. Patient does have a longstanding history of chronic wounds and patient has had previous follow-up with wound care. Patient states he has wounds on bilateral ankles that have been present for approximately the last 8 weeks. Today patient had sensation of feeling flushed so he presented the emergency department for evaluation. Related Data Home Medications Medication Instructions Recorded Confirmed Humalog KwikPen Insulin See Protocol subcut TIDWM 03/22/19 03/22/19 aspirin 81 mg tablet,delayed 81 mg PO DAILY 03/22/19 03/22/19 release atorvastatin 40 mg tablet 40 mg PO DAILY 03/22/19 03/22/19 empagliflozin 25 mg tablet 25 mg PO DAILY 03/22/19 03/22/19 (Jardiance) furosemide 40 mg tablet 40 mg PO DAILY 03/22/19 03/22/19 insulin detemir U-100 100 unit/mL 75 unit subcut DAILY 03/22/19 03/22/19 (3 mL) subcutaneous pen (Levemir FlexTouch U-100 Insulin) metformin 500 mg tablet 500 mg PO BID 03/22/19 03/22/19 metoprolol succinate 50 mg 12.5 mg PO DAILY 03/22/19 03/22/19 tablet,extended release 24 hr dulaglutide 3 mg/0.5 mL mg subcut 11/01/21 subcutaneous pen injector (Trulicity) sacubitril 24 mg-valsartan 26 mg tablet 11/01/21 tablet (Entresto) Allergies Allergy/AdvReac Type Severity Reaction Status Date / Time Penicillins Allergy Swelling Verified 09/29/23 11:10 Review of Systems Review of Systems: All systems reviewed & are unremarkable except as noted in HPI and below PMFSH Past Medical History Medical History Chronic stasis dermatitis Chronic wound of extremity Endocarditis 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 Hypertension Insulin dependent diabetes mellitus Lymphedema of lower extremity Obesity Obstructive sleep apnea on CPAP Surgical History Surgical History Status post aortic valve replacement Status post biventricular cardiac pacemaker insertion Status post sclerotherapy of varicose veins Family History Family History Mother Cancer Grandparent Cancer Grandparent Heart attack Social History Social History Social History: The patient lives in [place] with his parents. He designates his father, Buzz, is his surrogate decision maker and he wishes to be a full code. He is a lifelong nonsmoker and denies alcohol and drug abuse. Gender identity (if verbalized by the patient): Male Spiritual care concerns: No Agree to blood products: Yes Exam Narrative: APPEARANCE: Well appearing, no pain, no distress, well-nourished. HEAD: normocephalic, atraumatic. EYES: PERRLA/EOMI, conjunctivae clear. NOSE: Normal no drainage EARS:TMS clear with good light reflex. THROAT: Pharynx clear, no exudate. NECK: Supple. No adenopathy, no masses. RESPIRATORY: Airway patent, respirations nonlabored. Clear to auscultation bilaterally, no rales, rhonchi, wheezing. CARDIOVASCULAR: Regular rate and rhythm without murmurs rubs or gallops. ABDOMINAL: Soft, nontender, nondistended, normal bowel sounds MUSCULOSKELETAL: Moves all extremities. Strength/ROM intact, No edema, No calf tenderness. NEURO: Alert. Cranial nerves II through XII intact. Good gait. Good coordination SKIN: Chronic venous stasis changes of lower extremities bilaterally. Two chronic ulcers on the medial ankles bilaterally. Course Course Emergency Course: Patient was started on antibiotics for possible cellulitis. Patient was updated on plan of care and on reasons to return to the [facility]
[2023-09-29 13:15] VITALS: BP 109/59; PULSE 76; RESP 18; TEMP 36.9; O2SAT 98
[2023-09-29] MEDS: CLINDAMYCIN 600 MG/D5W 50 ML 600 MG/50 ML PIGGYBACK 100 MG IVPB (13:42)
[2023-09-29 14:07] LABS: Hematocrit 43.8 % (42.0-52.0); Hemoglobin 13.9 g/dL (14.0-18.0); Mean Corpuscular HGB Conc 31.7 g/dl (32-36); Mean Corpuscular Hemoglobin 28.4 pg (26-34); Mean Corpuscular Volume 89.4 fl (80-100); Mean Platelet Volume 10.5 fl (7.4-10.4); Platelet Count Result 189 k/mm3 (150-375); Red Cell Distribution Width 16.6 % (11.5-14.5); White Blood Count 13.6 K/mm3 (4.5-10.0)
[2023-09-29 14:17] LABS: Alanine Aminotransferase 35 U/L (6-50); Albumin Level 5.1 g/dL (3.5-5.1); Alkaline Phosphatase 83 U/L (38-126); Anion Gap 13 mmol/L (4-12); Aspartate Amino Transferase 40 U/L (17-59); Bilirubin,Total 2.9 mg/dL (0.2-1.3); Blood Urea Nitrogen 19 mg/dL (9-20); Calcium 9.4 mg/dL (8.4-10.2); Carbon Dioxide 27 mmol/L (22-30); Chloride 98 mmol/L (98-107); Estimated Glomerular Filt Rate > 60; Glucose 152 mg/dL (65-110); Sodium 138 mmol/L (137-145)
[2023-09-29 14:40] LABS: Anisocytosis 2+; Band Neutrophils Percent 7 % (0-6); Lymphocytes Absolute Manual 1.08 K/mm3 (1.1-4.5); Monocytes Absolute Manual 0.54 K/mm3 (0.1-0.90); Monocytes Percent Manual 4 % (3-9); Neutrophils Absolute Manual 11.96 K/mm3 (1.3-6.7); Neutrophils Percent Manual 81 % (46-73); Platelet Estimate Adequate (Adequate); Schistocytes None Seen; Total Cells Counted 100
[2023-09-29 14:42] LABS: Influenza A QL RT-PCR Negative (Negative); Influenza B QL RT-PCR Negative (Negative); RSV RNA, RT-PCR Negative (Negative); SARS-CoV-2 RNA PCR Negative (Negative)
[2023-09-29 16:10] VITALS: BP 122/55; PULSE 91; RESP 16; TEMP 38.6; O2SAT 98
== END 2023-09-29 16:14 | disposition home or self-care (01) ==
PROVIDERS: Emergency Provider Emergency Medicine; PCP Internal Medicine
DX: L03.116 Cellulitis of left lower limb (principal); L03.115 Cellulitis of right lower limb; Z20.822 Contact with and (suspected) exposure to COVID-19; I10 Essential (primary) hypertension; E11.9 Type 2 diabetes mellitus without complications; Z79.4 Long term (current) use of insulin; G47.30 Sleep apnea, unspecified
CPT/HCPCS: 36415; 80053; 85025; 87637; 96365; 99284